=== PATIENT | female | born 1990 | race Caucasian/White ===

== ENCOUNTER → 2021-03-16 09:23 | Outpatient (CLI) | payer BC, SELFPAY ==
[2021-03-16 10:14] LABS: hCG Titer Quant., Serum < 1 mIU/mL (1-3)
== END ==
LOC: PAVLAB 09:26
PROVIDERS: Referring Provider Nurse Practitioner Women's Health; Visit Provider Nurse Practitioner Women's Health
DX: N91.2 Amenorrhea, unspecified (principal)
CPT/HCPCS: 36415; 84702

== ENCOUNTER → 2021-06-02 16:09 | Outpatient (CLI) | payer BC, SELFPAY ==
[2021-06-02 17:39] LABS: Amphetamine Urine VISTA NEGATIVE (<1000 ng/mL); Barbiturate Urine VISTA NEGATIVE (< 200 ng/mL); Benzodiazepine Urine VISTA NEGATIVE (< 200 ng/mL); Cocaine Urine VISTA NEGATIVE (< 300 ng/mL); Ecstacy Urine VISTA NEGATIVE (< 500 ng/mL); Methadone Urine VISTA NEGATIVE (< 300 ng/mL); PCP Urine VISTA NEGATIVE (< 25 ng/mL); THC Urine VISTA NEGATIVE (< 50 ng/mL); Vista UDS pH Range 6
== END ==
LOC: LABSPEC 16:11
PROVIDERS: Referring Provider Obstetrics & Gynecology; Visit Provider Obstetrics & Gynecology
DX: O09.90 Supervision of high risk pregnancy, unspecified, unspecified trimester (principal); Z3A.00 Weeks of gestation of pregnancy not specified
CPT/HCPCS: 80307; 87086; 87088

== ENCOUNTER → 2021-06-02 16:32 | Outpatient (CLI) | payer BC, SELFPAY ==
[2021-06-04 21:10] LABS: Chlamydia By Nucleic Acid AMP Negative (Negative)
[2021-06-05 08:02] LABS: Gonococcus By Nucleic Acid AMP Negative (Negative)
[2021-06-09 22:51] LABS: HPV APTIMA, High Risk Negative (Negative)
== END ==
LOC: LABSPEC 16:34
PROVIDERS: Visit Provider Obstetrics & Gynecology
DX: O09.90 Supervision of high risk pregnancy, unspecified, unspecified trimester (principal); Z3A.00 Weeks of gestation of pregnancy not specified; Z12.4 Encounter for screening for malignant neoplasm of cervix
CPT/HCPCS: 87491; 87591; 87624; 88175; G0145

== ENCOUNTER 2021-09-27 09:36 | Outpatient (CLI) | payer BC, SELFPAY ==
[2021-09-27 09:53] LABS: Absolute Lymphocyte Count 1.45 X10^3/uL (0.83-4.51); Basophil# 0.02 X10^3/uL; Basophil% 0.2 % (0-1); Eosinophil# 0.09 X10^3/uL; Eosinophils% 0.9 % (0-5); Hematocrit 35.9 % (37-47); Hemoglobin 11.6 g/dL (12.0-15.0); Lymphocyte # 1.45 X10^3/ul (0.83-4.51); Lymphocyte % 14.4 % (19-41); Mean Corp Hgb Conc 32.3 g/dL (32-36); Mean Corpuscular Hgb 29.8 pg (27.0-32.0); Mean Corpuscular Volume 92.3 fL (81-99); Mean Platelet Vol. 10.2 fl (6.2-12.0); Monocyte# 0.46 X10^3/uL; Monocyte% 4.6 % (0-10); NRBC Flagged by Analyzer 0 % (0-5); Neutrophil % 79.1 % (47-70); Platelet Count 235 K/mm3 (150-450); RBC Distribution Width CV 13.7 % (11.6-14.6); RBC Distribution Width SD 46.3 fl (35.1-43.9); Red Blood Count 3.89 M/mm3 (4.2-5.4); White Blood Count 10.1 K/mm3 (4.4-11.0)
[2021-09-27 10:56] LABS: HIV - WCH Non-Reactive (Nonreactive); Hepatitis B Surface Antigen Non-Reactive (Nonreactive); Hepatitis C Antibody Non-Reactive (Nonreactive); Rubella IgG Reactive (Nonreactive); Syphilis Antibodies Non-reactive
== END 2021-09-27 23:59 | disposition home or self-care (01) ==
LOC: PAVLAB 09:37
PROVIDERS: Referring Provider Obstetrics & Gynecology; Visit Provider Obstetrics & Gynecology
DX: O09.90 Supervision of high risk pregnancy, unspecified, unspecified trimester (principal); Z3A.00 Weeks of gestation of pregnancy not specified
CPT/HCPCS: 36415; 85025; 86703; 86762; 86780; 86803; 86850; 86900; 86901; 87340

== ENCOUNTER 2021-10-22 12:58 | Outpatient (CLI) | payer BC, SELFPAY ==
[2021-10-22 14:17] LABS: Glucose Challenge Gest 1H 50g 102 mg/dL (70-140)
== END 2021-10-22 23:59 | disposition home or self-care (01) ==
LOC: LAB 12:58
PROVIDERS: Referring Provider Obstetrics & Gynecology; Visit Provider Obstetrics & Gynecology
DX: O99.210 Obesity complicating pregnancy, unspecified trimester (principal)
CPT/HCPCS: 36415; 82950

== ENCOUNTER 2021-12-25 10:15 | Outpatient (CLI) | payer BC, SELFPAY ==
[2021-12-25 10:21] VITALS: BMI 45.7
[2021-12-25 10:34] VITALS: TEMP 36.3
[2021-12-25 10:40] VITALS: BP 118/70; PULSE 91
[2021-12-25 10:56] LABS: Mucous, Urine 0 SEEN /hpf (<or=2+)
[2021-12-25 10:58] LABS: Color, Urine Yellow (Yellow); Glucose, Dipstick Normal (Normal); Ketone-Dipstick Negative (Negative); Leukocyte Esterase-Dipstick 25 /ul (Negative); Nitrite-Dipstick Negative (Negative); Occult Blood-Urine 10 /ul (Negative); Protein-Dipstick 15 mg/dl (Negative); Urine Bilirubin Dipstick Negative (Negative); Urine Clarity Sl. Cloudy (Clear); Urine Urobilinogen Normal (Normal)
[2021-12-25 11:04] LABS: Bacteria RARE /hpf (None Seen); Red Blood Cells-Urine 0-5 SEEN /hpf (0-5); Squamous Epithelial Cells - UA 0-5 SEEN /hpf (5-10); White Blood Cells 0-5 SEEN /hpf (0-5)
--- NOTE | 2021-12-25 19:51 | OB.TRI.HP_ITS ---
HPI - General HPI Narrative AUDREY BORGES, is a 31 y/o @ 35 weeks 4 days who presents to l&D with the complaint of seeing some blood after using the restroom and decreased movement. She denies loss of fluid or contraction pain. Maternal Data Information SANDI Calculator Estimated Delivery Date Method Current WG Current Estimate 01/25/22 Ultrasound #1 35w 5d Other Estimates 01/02/22 LMP (Certain) 39w 0d PFSH PFSH Medical History H/O abnormal cervical Papanicolaou smear Home Medications multivitamin no.47-iron fum 27 mg-folate no.1 1 mg-dha 300 mg capsule 1 cap PO DAILY 05/18/21 [History Last Taken 12/25/21 07:30 1 tab] nitrofurantoin monohyd/m-cryst [Macrobid] 100 mg PO BID #14 cap 12/26/21 [Rx Last Taken Unknown] Allergy/AdvReac Type Severity Reaction Status Date / Time No Known Allergies Allergy Verified 12/16/21 11:35 Family History Other Breast cancer Cancer Diabetes Heart disease Surgical History H/O oophorectomy H/O ovarian cystectomy H/O wisdom tooth extraction Social History household members: spouse housing: house current occupational status: employed current occupation: [employer] pets and animals: Yes Smoking Status: Current every day smoker tobacco type: cigarettes second hand exposure: Yes alcohol intake: current alcohol intake frequency: holidays/special occasions only substance use type: does not use seatbelt use: always do you feel safe at home: Yes additional social history: - Ankit (DONELL) History 2 Elective abortions Hx Para Spontaneous abortions Hx # Term Pregnancies Ectopic pregnancies Hx # Pregnancies Multiple births # of living children Visit Details Expected Delivery Route/Plan Labor Preferences- CB/BF classes: [] labor support person: [] labor intervention preferences: [] pain management options preferred: [] cut cord/dad catch: [] : [] PP control planned: [] discussed possible routes of delivery and associated risks: [] special requests: [] Plans Covid status: discussed Flu vaccine: discussed Tdap vaccine: [] Rhogam: [] LARC form signed: [] Problem list reviewed and updated with the most current plan of care details and appropriate orders placed. Relevant counseling for the gestational age provided. Continue routine care and follow up unless otherwise noted in visit notes/problem list details OB Flowsheet Initial Weight: Not Recorded Date -?-?-?-?-?-?-?-?-?-?-?-?- EGA Weight BP Urine Prot -?-?-?-?-?-?-?-?-?-?-?-?- Glucose FHR FuHt Pres Dilation -?-?-?-?-?-?-?-?-?-?-?-?- Effaced St Visit Note 07/02/21 -?-?-?-?-?-?-?-?-?-?-?-?- 10w 3d 264 lb 126/78 Negative -?-?-?-?-?-?-?-?-?-?-?-?- Negative -?-?-?-?-?-?-?-?-?-?-?-?- JV- bedside us p erformed for heart tones. No cramping or bleeding no complaints. CRL consistent with LMP 07/30/21 -?-?-?-?-?-?-?-?-?-?-?-?- 14w 3d 266 lb 4 oz 120/78 Nega tive -?-?-?-?-?-?-?-?-?-?-?-?- Negative 163 -?-?-?-?-?-?-?-?-?-?-?-?- JV- no cramping or bleeding. nausea is improved. Still needs labs. order for mfm ultrasound in. 08/27/21 -?-?-?-?-?-?-?-?-?-?-?-?- 18w 3d 269 lb 2 oz 126/82 Trac e -?-?-?-?-?-?-?-?-?-?-?-?- Negative 145 -?-?-?-?-?-?-?-?-?-?-?-?- JV- nausea impro ving, no complaints today. has anatomy scan scheduled for next week. 09/24/21 -?-?-?-?-?-?-?-?-?-?-?-?- 22w 3d 277 lb 4 oz 130/80 Nega tive -?-?-?-?-?-?-?-?-?-?-?-?- Negative 147 -?-?-?-?-?-?-?-?-?-?-?-?- JV- needs rpt vi ews of anatomy scan. No complaints today. still needs new ob labs. will do that today 10/22/21 -?-?-?-?-?-?-?-?-?-?-?-?- 26w 3d 278 lb 126/80 Negative -?-?-?-?-?-?-?-?-?-?-?-?- Negative 145 26 -?-?-?-?-?-?-?-?-?-?-?-?- SM- no vb lof go od fm no regular ctx 11/19/21 -?-?-?-?-?-?-?-?-?-?-?-?- 30w 3d 284 lb 2 oz 120/86 Nega tive -?-?-?-?-?-?-?-?-?-?-?-?- Negative 145 -?-?-?-?-?-?-?-?-?-?-?-?- JV- larc signed. no complaints or contractions 12/02/21 -?-?-?-?-?-?-?-?-?-?-?-?- 32w 2d 283 lb 124/82 Trace -?-?-?-?-?-?-?-?-?-?-?-?- Negative 150 33 -?-?-?-?-?-?-?-?-?-?-?-?- JV- no lof, vagi nal bleeding, or dec fm. 12/16/21 -?-?-?-?-?-?-?-?-?-?-?-?- 34w 2d 283 lb 8 oz 120/82 Nega tive -?-?-?-?-?-?-?-?-?-?-?-?- Negative 135 39 -?-?-?-?-?-?-?-?-?-?-?-?- JV- no lof, vagi nal bleeding, or dec fm. measuring large. growth scan for 36 weeks ordered. 12/25/21 -?-?-?-?-?-?-?-?-?-?-?-?- 35w 4d 283 lb 4.704 oz 118/70 15 mg/dl (Negative) H -?-?-?-?-?-?-?-?-?-?-?-?- -?-?-?-?-?-?-?-?-?-?-?-?- ROS Constitutional Constitutional: Reports systems reviewed and no addt'l complaints, except as documented Gastrointestinal Gastrointestinal: Denies bloating, constipation, cramping, diarrhea, nausea or vomiting Genitourinary Genitourinary: Reports other Details: Denies vaginal odor, vaginal bleeding, or vaginal discharge ; Denies difficulty urinating or flank pain Physical Exam HEENT normocephalic Resp normal respiratory effort and normal air movement no CVA tenderness Extremity normal to inspection General Extremity: edema bilateral (trace ) NST FHR Rate Baby A Baseline: 140 Variability:: Moderate Accelerations:: 15 x 15 Decelerations:: None NST Reactive:: Yes FHR Category:: Category I Assessment & Plan (1) UTI in : COMMENT: >100,000 CFU mixed gram neg bacteria 12/25/21 started on macrobid. will need HAJA at 37 weeks. (2) Obesity affecting : COMMENT: 1 tm gct nl. 2 tm gct nl (3) Supervision of high risk , antepartum: COMMENT: PRR SANDI: 01/02/22 Spouse: Ankit (4) : QUALIFIERS: Weeks of gestation: 34 weeks Qualified Code(s): Z3A.34 - 34 weeks gestation of COMMENT: anatomy nl, discussed genetic and carrier 09/27 growth nl (5) Anxiety and depression: COMMENT: no meds counseling in past (6) H/O Down syndrome: COMMENT: patient's 2nd cousin PLAN: dc to home with macrobid rx. follow up in office in one week reactive NST . Charges/Coding Multi Select Codes Visit Charges Office Visit/Consults: 12462 OV L3 Est Urinary/Genital Urinary/Genital CPT Codes: 38476-48 non-stress test Interp
== END 2021-12-25 11:38 | disposition home or self-care (01) ==
LOC: WPOUT 10:19 → WP 10:20
PROVIDERS: Referring Provider Obstetrics & Gynecology; Visit Provider Obstetrics & Gynecology
DX: O23.43 Unspecified infection of urinary tract in pregnancy, third trimester (principal); O99.343 Other mental disorders complicating pregnancy, third trimester; R11.0 Nausea; F32.A Depression, unspecified; O99.891 Other specified diseases and conditions complicating pregnancy; Z77.22 Contact with and (suspected) exposure to environmental tobacco smoke (acute) (chronic); Z3A.34 34 weeks gestation of pregnancy; F41.9 Anxiety disorder, unspecified
CPT/HCPCS: 59025; 59050; 81001; 87086; 87088; 99218; G0378

== ENCOUNTER → 2021-12-29 | Outpatient (CLI) | payer BC, SELFPAY ==
--- NOTE | 2021-12-29 07:49 | US_ITS ---
STUDY: SECOND AND THIRD TRIMESTER OBSTETRICAL ULTRASOUND - LIMITED REASON FOR EXAM: Female, 31 years old growth @ 36 weeks, suspected LGA LMP: 04/20/2021. PRIOR ULTRASOUND: None. TECHNIQUE: Transabdominal TECHNICAL QUALITY: Adequate. FINDINGS: There is a single intrauterine fetus. The fetus is in a cephalic presentation. There is demonstrated cardiac activity with a heart rate of 126 bpm. There is a normal amniotic fluid volume. The largest amniotic fluid pocket measures 5.4 cm. The amniotic fluid index (GABRIEL) is 13.8 cm. The placenta is fundal and left lateral. There are Grade 2 placental changes. The cervical length was not well visualized due to the head position. BIOMETRY: BPD: 9.41 cm: 38 weeks, 2 days HC: 33.52 cm: 38 weeks, 2 days AC: 34.56 cm: 38 weeks, 3 days FL: 19.41 cm: 38 weeks, 2 days Age by LMP: 36 weeks, 1 days. SANDI by LMP: 01/25/2022. age by current US: 38 weeks, 1 days. SANDI by current US: 01/11/2022. Estimated weight: 3532 grams, +/- 5:30 grams, 96 percentile. US/OB Limited With Biometrics IMPRESSION: Single live intrauterine gestation with a mean gestational age of 38 weeks and 1 day. Electronically Signed: Yung Dudley MD at 9:32 EDT ,
== END | disposition home or self-care (01) ==
LOC: US 07:48
PROVIDERS: Referring Provider Obstetrics & Gynecology; Visit Provider Obstetrics & Gynecology
DX: O36.60X0 Maternal care for excessive fetal growth, unspecified trimester, not applicable or unspecified (principal); Z3A.00 Weeks of gestation of pregnancy not specified
CPT/HCPCS: 76816

== ENCOUNTER → 2021-12-31 | Outpatient (CLI) | payer BC, SELFPAY | END | disposition home or self-care (01) | LOC: LABSPEC 01-03 08:16 | PROVIDERS: Visit Provider Obstetrics & Gynecology | DX: Z34.90 Encounter for supervision of normal pregnancy, unspecified, unspecified trimester (principal) | CPT/HCPCS: 87077; 87081; 87186 ==

== ENCOUNTER 2022-01-24 07:00 | Inpatient (IN) | payer BC, SELFPAY ==
[2022-01-24] VITALS (57 sets, daily range): BP systolic 96–124; BP diastolic 50–72; PULSE 69–151; RESP 16; TEMP 35.7–37.1; O2SAT 94–100; BMI 47.2
[2022-01-24] MEDS: Lactated Ringers 1,000 ML 50 ML IV (07:30)
[2022-01-24 07:51] LABS: Absolute Lymphocyte Count 1.23 X10^3/uL (0.83-4.51); Absolute Neutrophil Count 6.3 X10^3/uL (2.0-7.7); Basophil# 0.01 X10^3/uL; Basophil% 0.1 % (0-1); Eosinophil# 0.06 X10^3/uL; Eosinophils% 0.7 % (0-5); Hematocrit 33.2 % (37-47); Hemoglobin 10.6 g/dL (12.0-15.0); Lymphocyte # 1.23 X10^3/ul (0.83-4.51); Lymphocyte % 15.1 % (19-41); Mean Corp Hgb Conc 31.9 g/dL (32-36); Mean Corpuscular Hgb 28.2 pg (27.0-32.0); Mean Corpuscular Volume 88.3 fL (81-99); Mean Platelet Vol. 10.7 fl (6.2-12.0); Monocyte# 0.55 X10^3/uL; Monocyte% 6.7 % (0-10); NRBC Flagged by Analyzer 0 % (0-5); Neutrophil # 6.25 X10^3/uL (2.7-7.7); Neutrophil % 76.7 % (47-70); Platelet Count 242 K/mm3 (150-450); RBC Distribution Width SD 48.4 fl (35.1-43.9); Red Blood Count 3.76 M/mm3 (4.2-5.4); White Blood Count 8.2 K/mm3 (4.4-11.0)
[2022-01-24] MEDS: Oxytocin 30 units/NS 500 ml 30 UNITS/500 ML IV.SOLN IV (08:33)
[2022-01-24] MEDS: Penicillin G 3,000,000 Units 50 ML 100 UNITS IV ×3 (12:49→22:01)
--- NOTE | 2022-01-24 13:23 | HP.PCM.OB_ITS ---
HPI - General General Date of Admission: 01/24/22 HPI Narrative AUDREY BORGES, is a 31 F who presents for IOL secondary to LGA approximately 3800-3900g 96%ile, non diabetic. she has a favorable cordon score and was offered IOL vs exp management and desired to proceed with IOL. Maternal Data Information SANDI Calculator Estimated Delivery Date Method Current WG Current Estimate 01/25/22 Ultrasound #1 39w 6d Other Estimates 01/02/22 LMP (Certain) 43w 1d PFSH PFSH Medical History H/O abnormal cervical Papanicolaou smear Home Medications multivitamin no.47-iron fum 27 mg-folate no.1 1 mg-dha 300 mg capsule (PNV-DHA) 1 cap PO DAILY 05/18/21 [History Last Taken 01/24/22 07:00] Allergy/AdvReac Type Severity Reaction Status Date / Time No Known Allergies Allergy Verified 01/24/22 07:52 Family History Other Breast cancer Cancer Diabetes Heart disease Surgical History H/O oophorectomy H/O ovarian cystectomy H/O wisdom tooth extraction Social History household members: spouse housing: house current occupational status: employed current occupation: [employer] pets and animals: Yes Smoking Status: Former smoker second hand exposure: Yes alcohol intake: current alcohol intake frequency: holidays/special occasions only substance use type: does not use seatbelt use: always do you feel safe at home: Yes additional social history: - Ankit (DONELL) History 2 Elective abortions Hx Para 0 Spontaneous abortions Hx # Term Pregnancies Ectopic pregnancies Hx # Pregnancies Multiple births # of living children Visit Details Expected Delivery Route/Plan Labor Preferences- CB/BF classes: none labor support person: Ankit labor intervention preferences: pain management options preferred: open to epidural cut cord/dad catch: yes : yes PP control planned: no discussed possible routes of delivery and associated risks: [] special requests: [] Plans Covid status: discussed Flu vaccine: discussed Tdap vaccine: given Rhogam: na LARC form signed: declined movement and labor precautions reviewed. Problem list reviewed and updated with the most current plan of care details and appropriate orders placed. Relevant counseling for the gestational age provided. Continue routine care and follow up unless otherwise noted in visit notes/problem list details OB Flowsheet Initial Weight: Not Recorded Date -?-?-?-?-?-?-?-?-?-?-?-?- EGA Weight BP Urine Prot -?-?-?-?-?-?-?-?-?-?-?-?- Glucose FHR FuHt Pres Dilation -?-?-?-?-?-?-?-?-?-?-?-?- Effaced St Visit Note 07/02/21 -?-?-?-?-?-?-?-?-?-?-?-?- 10w 3d 264 lb 126/78 Negative -?-?-?-?-?-?-?-?-?-?-?-?- Negative -?--?-?-?-?-?-?-?-?-?-?-?- JV- bedside us p erformed for heart tones. No cramping or bleeding no complaints. CRL consistent with LMP 07/30/21 -?-?-?-?-?-?-?-?-?-?-?-?- 14w 3d 266 lb 4 oz 120/78 Nega tive -?-?-?-?-?-?-?-?-?-?-?-?- Negative 163 -?-?-?-?-?-?-?-?-?-?-?-?- JV- no cramping or bleeding. nausea is improved. Still needs labs. order for mfm ultrasound in. 08/27/21 -?-?-?-?-?-?-?-?-?-?-?-?- 18w 3d 269 lb 2 oz 126/82 Trac e -?-?-?-?-?-?-?-?-?-?-?-?- Negative 145 -?-?-?-?-?-?-?-?-?-?-?-?- JV- nausea impro ving, no complaints today. has anatomy scan scheduled for next week. 09/24/21 -?-?-?-?-?-?-?-?-?-?-?-?- 22w 3d 277 lb 4 oz 130/80 Nega tive -?-?-?-?-?-?-?-?-?-?-?-?- Negative 147 -?-?-?-?-?-?-?-?-?-?-?-?- JV- needs rpt vi ews of anatomy scan. No complaints today. still needs new ob labs. will do that today 10/22/21 -?-?-?-?-?-?-?-?-?-?-?-?- 26w 3d 278 lb 126/80 Negative -?-?-?-?-?-?-?-?-?-?-?-?- Negative 145 26 -?-?-?-?-?-?-?-?-?-?-?-?- SM- no vb lof go od fm no regular ctx 11/19/21 -?-?-?-?-?-?-?-?-?-?-?-?- 30w 3d 284 lb 2 oz 120/86 Nega tive -?-?-?-?-?-?-?-?-?-?-?-?- Negative 145 -?-?-?-?-?-?-?-?-?-?-?-?- JV- larc signed. no complaints or contractions 12/02/21 -?-?-?-?-?-?-?-?-?--?-?-?- 32w 2d 283 lb 124/82 Trace -?-?-?-?-?-?-?-?-?-?-?-?- Negative 150 33 -?-?-?-?-?-?-?-?-?-?-?-?- JV- no lof, vagi nal bleeding, or dec fm. 12/16/21 -?-?-?-?-?-?-?-?-?-?-?-?- 34w 2d 283 lb 8 oz 120/82 Nega tive -?-?-?-?-?-?-?-?-?-?-?-?- Negative 135 39 -?-?-?-?-?-?-?-?-?-?--?-?- JV- no lof, vagi nal bleeding, or dec fm. measuring large. growth scan for 36 weeks ordered. 12/25/21 -?-?-?-?-?-?-?-?-?-?-?-?- 35w 4d 283 lb 4.704 oz 118/70 15 mg/dl (Negative) H -?-?-?-?-?-?-?-?-?-?-?-?- -?-?-?-?-?-?-?-?-?-?-?-?- 12/31/21 -?-?-?-?-?-?-?-?-?-?-?-?- 36w 3d 285 lb 4 oz 126/80 Nega tive -?-?-?-?-?-?-?-?-?-?-?-?- Negative 135 40 Cephalic 1 .5 -?-?-?-?-?-?-?-?-?-?-?-?- 70 -2 SM- no vb lof good fm no regular ctx reviwed growth US. gbs done. discussed labor preferences. 01/07/22 -?-?-?-?-?-?-?-?-?-?-?-?- 37w 3d 288 lb 120/88 Negative -?-?-?-?-?-?-?-?-?-?-?-?- Negative 135 40 Cephalic 1 .5 -?-?-?-?-?-?-?-?-?-?-?-?- 70 -1 SM- no vb lof good fm n oreuglar ctx SM- no vb lof good fm no reg ular ctx discussed IOL considerations 01/14/22 -?-?-?-?-?-?-?-?-?-?-?-?- 38w 3d 288 lb 116/78 Trace -?-?-?-?-?-?-?-?-?-?-?-?- Negative 140 40 Cephalic 1 .5 -?-?-?-?-?-?-?-?-?-?-?-?- 70 -1 JV- very s oft cervix and suspect LGA. we discussed indication indications and risks. 01/21/22 -?-?-?-?-?-?-?-?-?-?-?-?- 39w 3d 291 lb 108/75 Negative -?-?-?-?-?-?-?-?-?-?-?-?- Negative 140 42 Cephalic 3 -?-?-?-?-?-?-?-?-?-?-?-?- 80 -1 SM- no vb lof irregular ctx discussed IOL monday01/24/22 -?-?-?-?-?-?-?-?-?-?-?-?- 39w 6d 292 lb 8.854 oz 123/ 72 104/60 102/63 118/59 98/53 107/63 -?-?-?-?-?-?-?-?-?-?-?-?- -?-?-?-?-?-?-?-?-?-?-?-?- NST FHR Rate Baby A Baseline: 130 Variability:: Moderate Accelerations:: 15 x 15 Decelerations:: None NST Reactive:: Yes FHR Category:: Category I Uterine Activity:: irregular ROS Constitutional Constitutional: Reports systems reviewed and no addt'l complaints, except as documented Eyes Eyes: Denies change in vision ENT HEENT: Reports systems reviewed and no addt'l complaints, except as documented; Denies headache(s) Cardiovascular Cardiovascular: Reports systems reviewed and no addt'l complaints, except as documented; Denies chest pain or dyspnea Respiratory/Chest Respiratory/Chest: Reports systems reviewed and no addt'l complaints, except as documented Gastrointestinal Gastrointestinal: Reports systems reviewed and no addt'l complaints, except as documented; Denies abdominal pain Genitourinary Genitourinary: Reports systems reviewed and no addt'l complaints, except as documented, contractions Details: present (irregular) and movement Details: present; Denies dysuria or genital lesions Musculoskeletal Musculoskeletal: Reports systems reviewed and no addt'l complaints, except as documented Neurologic Neurologic: Reports systems reviewed and no addt'l complaints, except as documented Endocrine Endocrinology: Reports systems reviewed and no addt'l complaints, except as documented Vital Signs Vital Signs Vital Signs: 01/24/22 07:32 01/24/22 07:32 01/24/22 07:36 Temperature 97.9 F Temperature Source Pulse Rate 83 Blood Pressure 123/72 H BP Systolic 123 BP Diastolic 72 Pulse Ox 01/24/22 07:32 01/24/22 09:17 01/24/22 09:17 Temperature Temperature Source Pulse Rate 76 Blood Pressure 104/60 BP Systolic 104 BP Diastolic 60 Pulse Ox 97 01/24/22 09:18 01/24/22 09:19 01/24/22 09:19 Temperature 98.1 F Temperature Source Pulse Rate 80 Blood Pressure BP Systolic BP Diastolic Pulse Ox 96 01/24/22 09:17 01/24/22 09:17 01/24/22 09:17 Temperature 98.0 F Temperature Source Temporal Pulse Rate Blood Pressure BP Systolic BP Diastolic Pulse Ox 98 01/24/22 10:01 01/24/22 10:01 01/24/22 10:01 Temperature 97.9 F Temperature Source Pulse Rate 151 H Blood Pressure 102/63 BP Systolic 102 BP Diastolic 63 Pulse Ox 01/24/22 10:01 01/24/22 10:04 01/24/22 10:04 Temperature Temperature Source Temporal Pulse Rate 75 Blood Pressure BP Systolic BP Diastolic Pulse Ox 97 01/24/22 10:01 01/24/22 10:03 01/24/22 10:48 Temperature 97.8 F Temperature Source Pulse Rate 75 Blood Pressure 118/59 L BP Systolic 118 BP Diastolic 59 Pulse Ox 01/24/22 10:48 01/24/22 10:48 01/24/22 11:28 Temperature 98.1 F Temperature Source Pulse Rate 78 Blood Pressure BP Systolic BP Diastolic Pulse Ox 97 01/24/22 11:25 01/24/22 11:25 01/24/22 11:37 Temperature 98.0 F Temperature Source Temporal Pulse Rate Blood Pressure 98/53 L BP Systolic 98 BP Diastolic 53 Pulse Ox 01/24/22 11:37 01/24/22 11:37 01/24/22 12:36 Temperature Temperature Source Pulse Rate 82 Blood Pressure 107/63 BP Systolic 107 BP Diastolic 63 Pulse Ox 97 01/24/22 12:36 01/24/22 12:35 01/24/22 12:36 Temperature 98.8 F Temperature Source Pulse Rate 85 Blood Pressure BP Systolic BP Diastolic Pulse Ox 97 Weight Weight: 292 lb 8.854 oz Body Mass Index (BMI) 47.2 Physical Exam Const alert, oriented x3, no apparent distress and healthy appearing HEENT normocephalic and moist oral mucous membranes Head and Scalp: atraumatic Neck full ROM, no lymphadenopathy, supple and thyroid normal General: trachea midline Lymph Lymphatic: no lymphadenopathy noted Chest inspection of chest normal Resp normal respiratory effort Cardio regular rate GI normal to inspection, nondistended, normoactive bowel sounds, soft to palpation and non-tender Inspection: gravid external exam normal Manual OB Exam: estimated gestational size appropriate, presentation cephalic, dilated, effaced and station Extremity normal to inspection General Extremity: Negative for edema Skin no rashes or lesions noted Neuro no focal motor deficits and deep tendon reflexes 2+ bilaterally Motor Exam: strength 5/5 throughout and clonus absent Psych mental status grossly normal Labs Labs Labs: Blood Type AB POSITIVE Antibody Screen NEGATIVE Hct 33.2 % (37-47) L Hgb 10.6 g/dL (12.0-15.0) L Obstetrics US Syphilis Total Ab Non-reactive Rubella IgG Antibody Reactive (Nonreactive) Hep Bs Antigen Non-Reactive (Nonreactive) Chlamydia DNA (ANA) Negative (Negative) Neisseria gonorrhoeae DNA (ANA) Negative (Negative) HIV 1&2 Antibody Non-Reactive (Nonreactive) Glucose 1 Hr 50 gm 102 mg/dL (70-140) Assessment & Plan (1) GBS (group B Streptococcus carrier), +RV culture, currently : COMMENT: PCN (2) LGA (large for gestational age) fetus: COMMENT: 3550 grams at 38 weeks (96th%), IOL 39 (3) History of tetanus, diphtheria, and acellular pertussis booster vaccination (Tdap): COMMENT: 12/31/21 (4) UTI in : COMMENT: >100,000 CFU mixed gram neg bacteria 12/25/21 started on macrobid. will need HAJA at 37 weeks. (5) Obesity affecting : COMMENT: 1 tm gct nl. 2 tm gct nl (6) Supervision of high risk , antepartum: COMMENT: PRR SANDI: 01/02/22 girl Lucie Spouse: Ankit (7) : QUALIFIERS: Weeks of gestation: 39 weeks Qualified Code(s): Z3A.39 - 39 weeks gestation of COMMENT: GBS +, anatomy nl, discussed genetic and carrier 09/27 growth nl (8) Anxiety and depression: COMMENT: no meds counseling in past (9) H/O Down syndrome: COMMENT: patient's 2nd cousin PLAN: Plan Patient presents IOL, plan management for with pitocin/AROM. Pain management: plans epidural. GBS pos- PCN in labor. Management of any complications: none [facility] and made any clinically relevant updates.
[2022-01-24] MEDS: LACTATED RINGERS 500 ML 999 ML IV ×4 (14:55→22:02)
[2022-01-24] MEDS: fentaNYL-bupivacaine (epidural) 100 ML BAG EPIDURAL ×2 (15:47→19:42)
[2022-01-24] MEDS: Lactated Ringers 1,000 ML 200 ML IV (19:38)
[2022-01-25] VITALS (33 sets, daily range): BP systolic 101–136; BP diastolic 49–86; PULSE 71–97; RESP 16–18; TEMP 35.8–37.2; O2SAT 89–99
[2022-01-25] MEDS: fentaNYL-bupivacaine (epidural) 100 ML BAG EPIDURAL ×2 (00:24→05:05)
[2022-01-25] MEDS: Lactated Ringers 1,000 ML 200 ML IV ×2 (01:26→07:27)
[2022-01-25] MEDS: LACTATED RINGERS 500 ML 999 ML IV (01:37)
[2022-01-25] MEDS: Penicillin G 3,000,000 Units 50 ML 100 UNITS IV ×2 (01:49→05:39)
[2022-01-25] MEDS: 0.9% Saline Lock 10 ML Syringe IV ×2 (06:33→10:30)
[2022-01-25] MEDS: Ondansetron 4 MG/2 ML Vial IV (06:33)
[2022-01-25] MEDS: Oxytocin 30 units/NS 500 ml 30 UNITS/500 ML IV.SOLN 999 UNITS IV (08:03)
[2022-01-25] MEDS: Methylergonovine 0.2 MG/ML Ampul IM (08:04)
--- NOTE | 2022-01-25 09:28 | EX.PCM.OBRPT ---
Maternal Data Information SANDI Calculator Estimated Delivery Date Method Current WG Current Estimate 01/25/22 Ultrasound #1 40w 0d Other Estimates 01/02/22 LMP (Certain) 43w 2d Vaginal Delivery Operative Information Date of Procedure: 01/25/22 Pre-Operative Diagnosis: iol LGA Post-Operative Diagnosis: same Surgery / Procedure Performed: Spontaneous Vaginal Delivery Type of Anesthesia: Epidural Special Medications: none Estimated Blood Loss: 400 Fluids Replaced: crystalloid Findings Description of Procedure: Patient began pushing and delivered the head in the RIVAS presentation. The head was delivered atraumatically and a loose nuchal cord ?1 was identified and the infant delivered through without complication. The anterior and posterior shoulders delivered without complication followed by the rest of the and the infant was placed on the maternal abdomen. Delayed cord clamping was employed for approximately 60 seconds. Cord was clamped and cut and gentle traction was applied to the cord and the placenta delivered spontaneously immediately following it was noted to be intact with three-vessel cord. The perineum and vagina were inspected and noted to have no laceration. EBL was 400 there was some atony and therefore metherine was given. Patient and tolerated delivery well. Presentation: RIVAS Amniotic Membrane Rupture Type: Artificial Amniotic Fluid Description: Clear Placental Delivery Description: Spontaneous Placenta Disposition: [facility] Cord Vessel Description: 3 Vessels Cord Entanglement: Around neck x 1, loose Delayed Cord Clamping: Yes Post Vaginal Delivery Medications Given After Delivery: IV Pitocin Episiotomy Description: None Laceration: None Complication Complications: None Procedures Urinary/Genital [id number]: 24042 Vaginal Delivery [facility]
--- NOTE | 2022-01-25 20:27 | CASEMGMT ---
SW Note Referral Source: MD Referral Reason: History of depression with counseling in the past SW reviewed PHQ 2 with score of zero. SW met with patient and the fob and nb in the room. Patient gave SW verbal consent to speak to her in the presence of the fob. Patient was holding the nb during the interview and smiling and appeared to be appropriately bonding with the nb. Patients RN Kirsten reports no concerns regarding the patient. Mom: Lily PNC: [place] Control: To be determined Baby: Lucie Odom : 01/25/[birth year] Apgars: 8/9 Weight: 8 lbs 5 ounces Technical Designer: [facility] Breast feeding. Patient said that nb had latched well the first two times she fed however she has not done well since and is struggling. After this interview the RN will work with the patient and nb on latching and patient said that she continues to want to try to . Patient has no other children. Housing: Patient resides in a house with the fob and the fob's mother. Transportation: Patient has car and is able to drive Supplies: Patient reports she has crib, bassinet, crib, diapers,carseat and all the nb supplies for the nb. Supports: Patient reports her support is Anikt and her friends who she texts from back home in [place]. Education Level: Patient graduated HS. Patient has a bachelors in teaching and a masters in learning technology . Patient reports no learning issues. 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 Patient said that she will be taking time off work until March and then she will wait and see. Patient is unsure if she will return to work or get another job. Agency Involvement: Patient has no JFS, no WIC, no HMG, no legal or CSB involvement. Patient said that she was in counseling 2 years ago as she was depressed about her job and went to counseling for 9 months. Patient said that she worked through it. FOB: Ankit Odom Time Together: 14 years Involved with : Yes Employment: [employer]. FOB will take 1 week off work. No other children FOB MH/AOD and DV History: Denied Maternal MH History: Patient reports previously she had been in counseling for period of 9 months, approximately 2 years ago. Patient reports that the counseling was related to be depressed with her job. Patient reports no medication for anxiety or depression. Patient denied any history or current SI/HI. Patient denied SI/HI and Violence on admission screen. Patient was educated on PPD, shaken baby and safe sleeping. Patient reports no drug use. Patient said that she quit smoking and is hoping to continue to not smoke. Patient said that smoking has been her coping skill. SW discussed not smoking in the presence of the nb and patient verbalized understanding. Patient reports use of alcohol on special occassions. No other issues or concerns voiced. Plan:Home [place] ESQUIVEL
[2022-01-25] MEDS: Acetaminophen 500 MG Tablet 1000 MG PO (21:01)
[2022-01-26 00:15] VITALS: BP 109/54; PULSE 87; RESP 16; TEMP 36.2; O2SAT 98
[2022-01-26 04:45] VITALS: BP 101/66; PULSE 75; RESP 16; TEMP 36.1; O2SAT 100
[2022-01-26 08:15] VITALS: BP 109/52; PULSE 82; RESP 16; TEMP 36.1; O2SAT 96
--- NOTE | 2022-01-26 09:05 | PCM.PN.OB ---
Subjective Subjective Patient doing well without complaints. Tolerating PO. Ambulating and voiding without difficulty. feeding well. Denies chest pain, shortness of breath, calf pain/swelling, fevers, chills, lightheadedness. Objective Data Objective Data Vital Signs: Vital Signs Temp Pulse Resp BP Pulse Ox O2 Del Method 96.9 F L 82 16 109/52 L 96 Room Air 01/26/22 08:15 01/26/22 08:15 01/26/22 08:15 01/26/22 08:15 01/26/22 08:15 01/26/22 08:15 Oxygen Delivery Method Room Air Weight: 292 lb 8.854 oz Body Mass Index (BMI) 47.2 Intake & Output: Intake and Output for Last 24 Hours 01/24/22 01/25/22 01/26/22 23:59 23:59 23:59 Intake Total 2809.20 / 2809.20 4222.93 / 4222.93 Output Total 1800 / 1800 Balance 2809.20 / 2809.20 2422.93 / 2422.93 Lab / Micro Data Result Diagrams: 01/24/22 07:30 Micro: Microbiology 01/24/22 07:15 Nasal Secretion SARS-CoV-2 Antigen (Rapid) - Final ROS Constitutional Constitutional: Reports systems reviewed and no addt'l complaints, except as documented Cardiovascular Cardiovascular: Reports systems reviewed and no addt'l complaints, except as documented Respiratory/Chest Respiratory/Chest: Reports systems reviewed and no addt'l complaints, except as documented Gastrointestinal Gastrointestinal: Reports systems reviewed and no addt'l complaints, except as documented Physical Exam Const alert, oriented x3 and no apparent distress HEENT Head and Scalp: atraumatic Resp normal respiratory effort GI soft to palpation and non-tender Bimanual Exam - Vag & Uterus: uterus non-tender Uterus Palpation: uterus fundus firm (below Umbilicus) Assessment & Plan (1) Vaginal delivery: COMMENT: SM IOL LGA girl Brigitte PLAN: Plan s/p PPD # 1 1. routine post delivery care 2. breast feeding- support given 3. rh positive 4. rubella immune
--- NOTE | 2022-01-26 09:06 | DCINST_ITS ---
Discharge Instructions Diet Discharge Diet: No restrictions Activity Discharge Activity: Return to Normal Activity, May Drive, May Shower and May Take a Tub Bath (in 4 weeks) May resume sexual activity in: 6-8 weeks (after seen by OB provider) Weight Bearing Status: Full weight bearing Lifting Restrictions: none Dressing / Incision Call your doctor if you observe: Fever of 101 or Higher, Inability to urinate, Using more than 1 pad per hour (for more than 2 hours in a row or more), Shortness of breath, Dizziness, Chest pain and - (headache not controlled with tylenol, change in vision) Follow Up Care When: in 6 weeks for visit, call the office to make the appointment. If you had elevated blood pressures call the office to be seen within 1 week. Test Results: Test results from this visit will be discussed in further detail at your follow- up appointment, if applicable. Discharge Plan Admission Admit Date/Time: 01/24/22 07:00 Attending Provider: Romelia Bright Primary Care Provider: Care Physician,Jordyn Primary Discharge Orders/Prescriptions Prescriptions: No Action PNV-DHA 27 mg iron-1 mg -300 mg capsule 1 cap PO DAILY Referrals / Follow Up: Care Physician,No Primary [Primary Care Provider] - Disposition Disposition (needs filled in before D/C Order can be placed): Home, Self Care
--- NOTE | 2022-01-26 10:39 | NURSING ---
Pt to call [place] office to schedule follow up appointment at 6 weeks .
[2022-01-26 13:15] VITALS: BP 105/64; PULSE 82; RESP 18; TEMP 36.1; O2SAT 94
== END 2022-01-26 13:50 | disposition home or self-care (01) | DRG 807 ==
PROVIDERS: Admitting Provider Obstetrics & Gynecology; Referring Provider Obstetrics & Gynecology; Visit Provider Obstetrics & Gynecology
DX: O36.63X0 Maternal care for excessive fetal growth, third trimester, not applicable or unspecified (principal); Z37.0 Single live birth; O99.344 Other mental disorders complicating childbirth; F32.A Depression, unspecified; F41.9 Anxiety disorder, unspecified; O69.81X0 Labor and delivery complicated by cord around neck, without compression, not applicable or unspecified; Z3A.39 39 weeks gestation of pregnancy; Z87.891 Personal history of nicotine dependence; O99.820 Streptococcus B carrier state complicating pregnancy; Z92.29 Personal history of other drug therapy; Z87.440 Personal history of urinary (tract) infections; O99.824 Streptococcus B carrier state complicating childbirth
CPT/HCPCS: 59025; 59050; 85025; 86850; 86900; 86901; 87426; 99218; 99406; J7120; A4216; G0378; J2405